=== PATIENT | female | born 1990 | race Caucasian/White ===

== ENCOUNTER 2024-05-19 08:05 | Day surgery (SDC) | payer MEDICAID, SELFPAY ==
[2024-05-18 13:34] VITALS: BMI 25.6
[2024-05-18 16:33] LABS: HCG Qualitative,Urine Negative
[2024-05-19] VITALS (12 sets, daily range): BP systolic 103–141; BP diastolic 56–88; PULSE 54–90; RESP 12–18; TEMP 36.7–36.9; O2SAT 95–100; BMI 26.6
[2024-05-19] MEDS: RINGERS LACTATED 1000 ML 1,000 ML 125 ML IV (08:40)
[2024-05-19] MEDS: DiphenhydrAMINE INJ 50 MG/ML VIAL 25 MG IV (08:45)
[2024-05-19] MEDS: MIDAZOLAM INJ 1 MG/ML VIAL 2 ML (ASD USE ONLY) 2 MG IV (08:54)
[2024-05-19] MEDS: fentaNYL CIT INJ 50 mCg/ML AMP 2ML (ASD USE ONLY) IV (08:54)
--- NOTE | 2024-05-19 09:46 | SUR.PHASEII ---
Pt doing well, pt is dressed and waiting for her ride in the wheelchair.
== END 2024-05-19 10:04 | disposition home or self-care (01) ==
PROVIDERS: PCP Family Medicine; Referring Provider Surgery; Visit Provider Surgery
PROC: 0DBE8ZX Excision of Large Intestine, Via Natural or Artificial Opening Endoscopic, Diagnostic (ICD-10-PCS; CPT 45380; principal; 2024-05-19 08:30)
DX: K64.8 Other hemorrhoids (principal)
CPT/HCPCS: 45378; 81025; J1200; J2250; J3010; J7120

== ENCOUNTER 2024-05-23 15:30 | Outpatient (AMB) | payer MEDICAID, SELFPAY ==
[2024-05-23 15:43] VITALS: BP 113/62; PULSE 85; RESP 18; TEMP 37.1; O2SAT 98; BMI 26.8
--- NOTE | 2024-05-23 15:43 | PD.GSCLVISIT ---
Vital Signs - [facility] 05/23/24 15:43 Height 1.57 m Height Method Stated Weight 66.026 kg Weight Measurement Method Standing Scale BMI 26.8 BP 113/62 Blood Pressure Source Automatic Cuff Blood Pressure Location Left Upper Arm Position Sitting Respiration 18 Pulse 85 Pulse Source Monitor Temp 98.8 F Temp Source Temporal Artery Scan Pulse Oximetry (%) 98 Oxygen Delivery Method Room Air Med/Allergies Allergies & Medications Allergies No Known Allergies Allergy (Verified 05/23/24 15:44) Medication Reconciliation No Known Home Medications 12/26/22 [History Confirmed 05/23/24] MA Intake Visit Data Collection New Patient or Established: Established Patient (seen at [facility] within 3 years) Seen by Clinical Staff ONLY (RN/MA): No Reason for Visit:: COLONOSCOPY RESULTS Pain Present Currently: No PCP or OBGYN visit in last 3 months: Yes Smoking Status Smoking Status: Never smoker Immunization / Flu Flu Vaccine in the Last 12 Months: No Flu Vaccine Exclusion Criteria: No Exclusion Criteria Past Medical History Past Medical History NEUROLOGIC: Negative Neurological Disorders or Seizures CARDIAC: Negative Cardiac Disorders, Congestive Heart Failure or Hypertension RESPIRATORY: Negative Chronic Obstructive Pulmonary Disease (COPD) GASTROINTESTINAL: Negative Gastrointestinal Disorders or Hepatitis GENITOURINARY: Negative Genitourinary Disorders or Renal Disease REPRODUCTIVE: Negative Previous Pregnancies MUSCULOSKELETAL: Positive Rheumatoid Arthritis and Fractures (right arm) ENDOCRINE: Negative Endocrine Disorders, Diabetes Mellitus Type 1 or Diabetes Mellitus Type 2 HEMATOLOGIC: Negative Blood Disorders PSYCHO/SOCIAL: Positive Anxiety OTHER HISTORY: Positive Hospitalization (surgery); Negative Autoimmune Disease, Shingles, Blood Transfusions, Blood Transfusion Reaction, Anesthesia Reactions, Organ Transplant, Chemotherapy, Radiation Therapy, Hyperbaric Therapy or Cancer Family History FAMILY HISTORY: Positive Family Cardiac Disorders and Family Surgery; Negative Family Psychiatric Problems, Family Respiratory Disorders, Family Gastrointestinal Problems, Family Cancer or Family Anesthesia Reaction Surgical History SURGICAL: Negative Organ Transplant Social History SMOKING STATUS: Smoking status: Never smoker ALCOHOL: Alcohol Intake: Current HOUSING: Housing: House HPI HPI Narrative 34F referred for diarrhea now s/p colonoscopy 04/2024 here to discuss results. Pt reports feeling well overall with no pain, her BMs have improved since she adjusted her diet according to her allergies and she has no complaints ROS Review of Systems Systems Reviewed: All systems reviewed, normal except as documented Objective/Exam General General Appearance: alert, cooperative and well groomed Resp Respiratory exam: Absent respiratory distress Results Colonoscopy report reviewed: hemorrhoids Assessment & Plan Diagnosis / Problem List (1) Encounter to discuss colonoscopy results: Status: Acute Assessment & Plan: 34F s/p diagnostic colonoscopy which was negative aside from hemorrhoids. As she has no symptoms related to her hemorrhoids pt prefers to hold off on any treatment but I welcomed her to call or visit if symptoms recur. Plan: Screening colonoscopy at age 46 Office Procedures GNS Level of Care Nursing/Assessment Patient Status: Established Patient Nursing Assessment/Reassesment: Medication Reconciliation, Update PMH in EMR and Vital Signs Coordination of Care: Complex Care and Chronic Disease 1-5, Consent,records obtained, informed consent, Education Simp Pt/Fam, Results/Orders obtained and Staff clarify orders Established Patient Charge Established Patient Point Assignment: 90 Established Patient Point Charge: EP Level 3 (80-115) Patient Portal Questionaires Social History Living Situation History Housing: House Tobacco History Smoking Status: Never smoker Alcohol History Alcohol Intake: Current Review of Systems Report any current symptoms Only answer those that you have currently: Past Medical History Past Medical History Have you ever been diagnosed with any of the following: Neurological Problems Seizures: No Cardiology Problems Congestive Heart Failure: No Hypertension: No Respiratory Problems Chronic Obstructive Pulmonary Disease (COPD): No Stomache/Intestinal Problems Hepatitis: No Genital/Urinary Problems Renal Disease: No Reproductive Problems Previous Pregnancies: No Musculoskeletal Problems Rheumatoid Arthritis: Yes Fractures: Yes (right arm) Endocrine Problems Diabetes Mellitus Type 1: No Diabetes Mellitus Type 2: No Psychologic Problems Anxiety: Yes Other Problems Hospitalization: Yes (surgery) Autoimmune Disease: No Shingles: No Blood Transfusions: No Blood Transfusion Reaction: No Anesthesia Reactions: No Organ Transplant: No Chemotherapy: No Radiation Therapy: No Hyperbaric Therapy: No Cancer: No
== END 2024-05-23 15:51 | disposition home or self-care (01) ==
LOC: HODSRG 15:30
PROVIDERS: Supervising Provider Surgery; Visit Provider Surgery
DX: Z71.2 Person consulting for explanation of examination or test findings (principal); K64.9 Unspecified hemorrhoids
CPT/HCPCS: 99213; G0463